=== PATIENT | female | born 1980 | race American Indian/Alaskan Native ===

== ENCOUNTER 2018-01-09 05:50 | Emergency (ER) | payer MEDICAID ==
[2018-01-09 06:13] VITALS: BP 126/83
[2018-01-09] MEDS ORDERED: TORADOL IM ONE (06:37)
--- NOTE | 2018-01-09 06:39 | Emergency Department Report ---
ED General Adult HPI - General Chief complaint: Back Pain/Injury Stated complaint: BACK/CHEST PAIN Time Seen by Provider: 01/09/18 06:14 Source: EMS Mode of arrival: Stretcher Limitations: No Limitations - History of Present Illness Initial comments: Patient presents to emergency department with complaint of upper back pain. Patient states the pain started 2 hours prior to arrival to the ED. The patient has 4 children at home thus the reason for taking ambulance so that her could stay home with the kids. The patient describes the pain as spasm- like eraser to 8 out of 10. Patient states approximately 2-1/2 weeks ago she picked up something heavy and that was initial injury to her back Severity scale (0 -10): 5 - Related Data Home Medications Medication Instructions Recorded Confirmed Last Taken Flunisolide [Aerospan] 2 puff INHALATION BID 07/17/14 08/16/14 08/01/14 12:00 2 RX: ALBUTEROL Inhaler [ProAir HFA 2 puff INHALATION Q4-6H 07/17/14 08/16/1412/22 18:00 Inhaler] 2 Pnv95/Ferrous Fumarate/FA 1 each PO QDAY 08/15/14 08/16/14 08/15/14 09:00 [ Vitamins] 1 Previous Rx's Medication Instructions Recorded Last Taken Type RX: predniSONE [Deltasone] 20 mg PO BID #10 tab 07/17/14 06/10/14 Rx HYDROcodone/APAP 5-325 [[place] 1 - 2 each PO Q6HR #30 tablet 08/16/14 Unknown Rx 5/325] RX: Ibuprofen [Motrin 600 MG tab] 600 mg PO Q6H PRN #30 tablet 08/16/14 Unknown Rx Acetaminophen/Codeine [Tylenol #3] 1 tab PO Q8H PRN #9 tab 08/04/15 Unknown Rx Ketorolac [Toradol] 10 mg PO Q6H PRN #20 tablet 01/09/18 Unknown Rx Allergies Allergy/AdvReac Type Severity Reaction Status Date / Time No Known Allergies Allergy Verified 08/15/14 15:14 ED Review of Systems ROS: Stated complaint: BACK/CHEST PAIN Other details as noted in HPI Comment: All other systems reviewed and negative Constitutional: denies: chills, fever Eyes: denies: eye pain, eye discharge, vision change ENT: denies: ear pain, throat pain Respiratory: denies: cough, shortness of breath, wheezing Cardiovascular: denies: chest pain, palpitations Endocrine: no symptoms reported Gastrointestinal: denies: abdominal pain, nausea, diarrhea Genitourinary: denies: urgency, dysuria, discharge Musculoskeletal: back pain. denies: joint swelling, arthralgia Skin: denies: rash, lesions Neurological: denies: headache, weakness, paresthesias Psychiatric: denies: anxiety, depression Hematological/Lymphatic: denies: easy bleeding, easy bruising ED Past Medical Hx - Past Medical History Hx Hypertension: No Hx Congestive Heart Failure: No Hx Diabetes: No Hx Deep Vein Thrombosis: No Hx Renal Disease: No Hx Sickle Cell Disease: No Hx Headaches / Migraines: Yes Hx Seizures: Yes Hx Asthma: Yes Hx COPD: No Hx HIV: No Additional medical history: ectopic 2008 - Surgical History Additional Surgical History: Ectopic - Social History Smoking Status: Never Smoker Substance Use Type: None - Medications Home Medications: Home Medications Medication Instructions Recorded Confirmed Last Taken Type Flunisolide [Aerospan] 2 puff INHALATION BID 07/17/14 08/16/14 08/01/14 12:00 History 2 RX: ALBUTEROL Inhaler [ProAir HFA 2 puff INHALATION Q4-6H 07/17/14 08/16/1412/22 18:00 History Inhaler] 2 RX: predniSONE [Deltasone] 20 mg PO BID #10 tab 07/17/14 08/16/14 06/10/14 Rx Pnv95/Ferrous Fumarate/FA 1 each PO QDAY 08/15/14 08/16/14 08/15/14 09:00 History [ Vitamins] 1 HYDROcodone/APAP 5-325 [[place] 1 - 2 each PO Q6HR #30 tablet 08/16/14 Unknown Rx 5/325] RX: Ibuprofen [Motrin 600 MG tab] 600 mg PO Q6H PRN #30 tablet 08/16/14 Unknown Rx Acetaminophen/Codeine [Tylenol #3] 1 tab PO Q8H PRN #9 tab 08/04/15 Unknown Rx Ketorolac [Toradol] 10 mg PO Q6H PRN #20 tablet 01/09/18 Unknown Rx ED Physical Exam - General Limitations: No Limitations General appearance: alert, in no apparent distress - Head Head exam: Present: atraumatic, normocephalic - Eye Eye exam: Present: normal appearance, PERRL, EOMI - ENT ENT exam: Present: mucous membranes moist - Neck Neck exam: Present: normal inspection - Respiratory Respiratory exam: Present: normal lung sounds bilaterally. Absent: respiratory distress, wheezes, rales, rhonchi - Cardiovascular Cardiovascular Exam: Present: regular rate, normal rhythm. Absent: systolic murmur, diastolic murmur, rubs, gallop - GI/Abdominal GI/Abdominal exam: Present: soft, normal bowel sounds - Extremities Exam Extremities exam: Present: normal inspection - Back Exam Back exam: Present: other (patient tender to palpation of the parathoracic region with obvious spasms) - Neurological Exam Neurological exam: Present: alert, oriented X3 - Psychiatric Psychiatric exam: Present: normal affect, normal mood - Skin Skin exam: Present: warm, dry, intact, normal color. Absent: rash ED Course Vital Signs 01/09/18 01/09/18 06:04 06:14 Temperature 98.3 F Pulse Rate 96 H Respiratory 18 18 Rate Blood Pressure 126/83 [Left] O2 Sat by Pulse 98 Oximetry ED Medical Decision Making - Medical Decision Making Patient has significant improvement with IM Toradol Discussed other medication options but the patient was hesitant due to her breast-feeding Critical care attestation.: If time is entered above; I have spent that time in minutes in the direct care of this critically ill patient, excluding procedure time. ED Disposition Clinical Impression: Back pain, Back muscle spasm Disposition: DC-01 TO HOME OR SELFCARE Is pt being admited?: No Does the pt Need Aspirin: No Condition: Stable Instructions: Muscle Spasm (ED), Back Pain (ED) Additional Instructions: Please return if symptoms worsen Prescriptions: Ketorolac [Toradol] 10 mg PO Q6H PRN #20 tablet PRN Reason: Pain Referrals: PRIMARY CARE,MD [Primary Care Provider] - 3-5 Days CANDI SHAH MD [Staff Physician] - 3-5 Days Time of Disposition: 07:48
== END 2018-01-09 09:20 | disposition home or self-care (01) ==
LOC: ED 05:50
DX: M54.89 Other dorsalgia (principal); G43.909 Migraine, unspecified, not intractable, without status migrainosus
CPT/HCPCS: 96372; 99283; J1885

== ENCOUNTER 2019-02-12 22:48 | Emergency (ER) | payer MEDICAID, OTHER ==
[2019-02-12 22:56] VITALS: BP 130/73
--- NOTE | 2019-02-13 01:28 | Emergency Department Report ---
ED Laceration HPI - HPI Chief Complaint: Wound/Laceration Stated Complaint: LACERATION TO LEFT MIDDLE FINGER Time Seen by Provider: 02/13/19 00:54 Occurred When: Yesterday (last night at 8 PM) Severity: mild Tetanus Status: Up to Date Laceration Symptoms: Yes Pain, No Foreign Body Sensation, No Numbness, No Weakness ED Review of Systems ROS: Stated complaint: LACERATION TO LEFT MIDDLE FINGER Other details as noted in HPI Constitutional: denies: chills, fever Eyes: denies: eye pain, eye discharge, vision change ENT: denies: ear pain, throat pain Respiratory: denies: cough, shortness of breath, wheezing Cardiovascular: denies: chest pain, palpitations Endocrine: no symptoms reported Gastrointestinal: denies: abdominal pain, nausea, diarrhea Genitourinary: denies: urgency, dysuria, discharge Musculoskeletal: denies: back pain, joint swelling, arthralgia Skin: denies: rash, lesions Neurological: denies: headache, weakness, paresthesias Psychiatric: denies: anxiety, depression Hematological/Lymphatic: denies: easy bleeding, easy bruising ED Past Medical Hx - Past Medical History Hx Hypertension: No Hx Congestive Heart Failure: No Hx Diabetes: No Hx Deep Vein Thrombosis: No Hx Renal Disease: No Hx Sickle Cell Disease: No Hx Headaches / Migraines: Yes Hx Seizures: Yes Hx Asthma: Yes Hx COPD: No Hx HIV: No Additional medical history: ectopic 2008. hyperthyroid - Surgical History Additional Surgical History: Ectopic - Social History Smoking Status: Never Smoker Substance Use Type: None - Medications Home Medications: Home Medications Medication Instructions Recorded Confirmed Last Taken Type ALBUTEROL Inhaler (OR & NICU) 2 puff INHALATION Q4-6H 07/17/14 08/16/14 08/13/14 18:00 History [ProAir HFA Inhaler] 2 Flunisolide [Aerospan] 2 puff INHALATION BID 07/17/14 08/16/14 08/01/14 12:00 History 2 predniSONE [Deltasone] 20 mg PO BID #10 tab 07/17/14 08/16/14 06/10/14 Rx Pnv95/Ferrous Fumarate/FA 1 each PO QDAY 08/15/14 08/16/14 08/15/14 09:00 History [ Vitamins] 1 HYDROcodone/APAP 5-325 [[place] 1 - 2 each PO Q6HR #30 tablet 08/16/14 Unknown Rx 5/325] Ibuprofen [Motrin 600 MG tab] 600 mg PO Q6H PRN #30 tablet 08/16/14 Unknown Rx Acetaminophen/Codeine [Tylenol #3] 1 tab PO Q8H PRN #9 tab 08/04/15 Unknown Rx Ketorolac [Toradol] 10 mg PO Q6H PRN #20 tablet 01/09/18 Unknown Rx Acetaminophen/Codeine [Tylenol 1 tab PO Q6H PRN #12 tab 02/13/19 Unknown Rx /Codeine # 3 tab] Sulfamethoxazole/Trimethoprim 1 each PO BID #14 tablet 02/13/19 Unknown Rx [Bactrim DS TAB] Laceration Physical Exam - Exam General: Vital signs noted. No distress. Alert and acting appropriately. Wound Length (cm): 1 Laceration Location: Upper Extremity (left middle finger) Laceration Exam: Yes Normal Distal CMS, No Foreign Body, No Exposed Tendon, Vessel, or Nerve, No Tendon Injury ED Course Vital Signs 02/12/19 22:55 Temperature 98.1 F Pulse Rate 79 Respiratory 18 Rate Blood Pressure 130/73 [Right] O2 Sat by Pulse 100 Oximetry - Reevaluation(s) Reevaluation #1: 02/13/19 01:24 Patient is speaking in full sentences with no signs of distress noted. - Laceration /Wound Repair Left Finger Wound Location: upper extremity (left middle finger) Wound Length (cm): 1 Wound's Depth, Shape: superficial Wound Explored: clean Irrigated w/ Saline (ccs): 40 Betadine Prep?: Yes Wound Repaired With: Dermabond Layer Closure?: No Sterile Dressing Applied?: Yes Progress: Patient was first soaked finger with betadine and water. Under sterile field, I used Betadine to clean the area. I then used 40 mL of normal saline to flush the area. I then used Dermabond to approximate the laceration. I then applied a sterile 4 x 4 with tape. Minimal bleeding noted but is under control. Patient tolerated procedure well with no signs of distress. ED Medical Decision Making - Medical Decision Making This is a 38-year-old female that presents with laceration. Patient is stable and was examined by me. Dermabond applied to the laceration and patient tolerated well. A sterile dressing has been applied. Patient was educated on proper wound care. Patient is discharged with Bactrim and Tylenol with codeine and was instructed not to operate any machinery while taking Tylenol with codeine due to drowsiness. Patient was instructed to refer to Follow-up with a primary care doctor in 3-5 days or if symptoms worsen and continue return to emergency room as soon as possible. At time of discharge, the patient does not seem toxic or ill in appearance. No acute signs of distress noted. Patient agrees to discharge treatment plan of care. No further questions noted by the patient. Critical care attestation.: If time is entered above; I have spent that time in minutes in the direct care of this critically ill patient, excluding procedure time. ED Disposition Clinical Impression: Laceration Disposition: DC-01 TO HOME OR SELFCARE Is pt being admited?: No Does the pt Need Aspirin: No Condition: Stable Instructions: Laceration (ED), Skin Adhesive Care (ED), Acetaminophen/Codeine (By mouth) Additional Instructions: Follow-up with a primary care doctor in 3-5 days or if symptoms worsen and continue return to emergency room as soon as possible. Prescriptions: Sulfamethoxazole/Trimethoprim [Bactrim DS TAB] 1 each PO BID #14 tablet Acetaminophen/Codeine [Tylenol /Codeine # 3 tab] 1 tab PO Q6H PRN #12 tab PRN Reason: Pain , Severe (7-10) Referrals: CEIRRA CARPIO MD [Primary Care Provider] - 3-5 Days PRIMARY CAREMD [Referring] - 3-5 Days MICK PATRICIO MD [Staff Physician] - 3-5 Days [facility] [Outside] - 3-5 Days [facility] [Outside] - 3-5 Days Forms: Work/School Release Form(ED)
== END 2019-02-13 01:47 | disposition home or self-care (01) ==
LOC: ED 22:48
DX: S61.213A Laceration without foreign body of left middle finger without damage to nail, initial encounter (principal); G43.909 Migraine, unspecified, not intractable, without status migrainosus; J45.909 Unspecified asthma, uncomplicated; E05.90 Thyrotoxicosis, unspecified without thyrotoxic crisis or storm; X58.XXXA Exposure to other specified factors, initial encounter; Y93.89 Activity, other specified; Y92.89 Other specified places as the place of occurrence of the external cause; Y99.8 Other external cause status
CPT/HCPCS: 99282

== ENCOUNTER 2020-05-10 10:51 | Emergency (ER) | payer SELFPAY ==
--- NOTE | 2020-05-10 12:08 | Event Note ---
ED Screening Note Date of service: 05/10/20 Time: 12:07 ED Screening Note: 39-year-old female who presents to ED with nausea vomiting worsening the past 2 days with mid abdominal pain radiating to mid back. Patient states she is unable to hold any food down. This initial assessment/diagnostic orders/clinical plan/treatment(s) is/are subject to change based on patients health status, clinical progression and re- assessment by fellow clinical providers in the ED. Further treatment and workup at subsequent clinical providers discretion. Patient/guardian urged not to elope from the ED as their condition may be serious if not clinically assessed and managed. Initial orders include: CBC, CMP, UA, UPT, Ultrasound abdomen
[2020-05-10 13:08] LABS: Bilirubin,Urine NEG (Negative); Blood,Urine NEG (Negative); Color,Urine Yellow (Yellow); Mucus,Urine 3+ /HPF
[2020-05-10 13:56] LABS: Alanine Aminotransferase 7 units/L (7-56); Albumin 4.6 g/dL (3.9-5); Blood Urea Nitrogen 11 mg/dL (7-17); Calcium 9.4 mg/dL (8.4-10.2); Hemolysis Index 7
[2020-05-10 13:58] LABS: BUN/Creatinine Ratio 28
[2020-05-10] MEDS ORDERED: METOCLOPRAMIDE 10 MG/2 ML INJ IV ONE (14:04)
[2020-05-10] MEDS ORDERED: ACETAMINOPHEN 500 MG TAB PO ONE (14:04)
[2020-05-10] MEDS ORDERED: SODIUM CHLORIDE 0.9% 1000 ML 1,000 ML IV ONE (14:04)
--- NOTE | 2020-05-10 14:25 | Ultrasound Report ---
ULTRASOUND ABDOMEN, COMPLETE INDICATION: abd pain. COMPARISON: No relevant prior imaging study available. FINDINGS: Pancreas: No significant abnormality. Abdominal Aorta: No significant abnormality. IVC: No significant abnormality. Liver: The liver measures 13.9 cm in length. No significant abnormality. Normal hepatopedal blood fl ow in the main portal vein. Gallbladder: Multiple small shadowing gallstones are identified in the gallbladder. No wall thickenin g or abnormal distention.. Bile ducts: No significant abnormality. Common bile duct measures 2.5 mm. Kidneys: Right: 12.1 cm in length. No significant abnormality. Left: 12.0 cm in length. No signif icant abnormality. Spleen: No significant abnormality. Free fluid: None. Additional Findings: None. IMPRESSION: Cholelithiasis. No evidence for acute cholecystitis. FIRSTTRIMESTER OBSTETRIC ULTRASOUND HISTORY: Abdominal pain COMPARISON: None. TECHNIQUE: Routine transabdominal and transvaginal OB ultrasound performed. FINDINGS: Uterus: Mildly enlarged measuring 14.6 x 8.9 x 9.1 cm. Gestational Sac: Well-defined oval shape and intrauterine in location. Yolk Sac: Normal in appearance. Fetus/Embryo: [place]-rump length of 2.5 cm, corresponding to an estimated gestational age of 9 weeks 1 day. Embryonic/ anatomy is too small for evaluation. Embryonic/ cardiac activity: 176bpm Placenta: Too small for evaluation. Amniotic fluid volume: Subjectively appropriate for gestational age. Ovaries: The right ovary is normal in size and appearance with normal blood flow, measuring 2.7 x 1. 4 x 2.3 cm. A 1.9 cm simple cyst is identified in the right ovary. The left ovary is normal in size a nd appearance with normal blood flow, measuring 2.9 x 1.7 x 3.9 cm. Additional findings: A small subchorionic hemorrhage is identified along the right lateral border of the gestational sac. IMPRESSION Early live intrauterine . 1.9 cm right ovarian cyst. Small subchorionic hemorrhage. Signer Name: Ministerio Camejo Jr, MD Signed: 05/10/2020 2:20 PM Workstation Name: [id number]
--- NOTE | 2020-05-10 14:41 | Emergency Department Report ---
ED Abdominal Pain HPI - General Chief Complaint: Nausea/Vomiting/Diarrhea Stated Complaint: cp/back pain/n/v Time Seen by Provider: 05/10/20 12:26 Source: patient Mode of arrival: Ambulatory Limitations: No Limitations - History of Present Illness Initial Comments: This is a 39-year-old female nontoxic, well nourished in appearance, no acute signs of distress presents to the ED with c/o of nausea and vomiting and abdominal pain several days. Patient describes vomiting as food content and yellow gastric acid. Patient describes abdominal pain as cramping and aching with level of 8/10 to RUQ with radiation to mid back. Patient denies chest pain , short of breath, fever, hemoptysis, blood in stool, chills, headache, stiff neck, numbness or tingling. Patient denies any diarrhea or constipation. Denies any blood in stool. Patient denies any recent travels. Patient denies any allegies. Patient is 9 weeks . Denies any vaginal bleeding or pelvic pain. MD Complaint: abdominal pain -: days(s) Location: RUQ Radiation: R flank Migration to: no migration Severity: mild Severity scale (0 -10): 8 Quality: cramping, aching Consistency: constant Improves With: nothing Worsens With: nothing Associated Symptoms: nausea, vomiting. denies: diarrhea, fever, chills, constipation, dysuria, hematemesis, hematochezia, melena, hematuria, anorexia, syncope - Related Data Home Medications Medication Instructions Recorded Confirmed Last Taken Albuterol Mdi (or & Nicu Only) 2 puff INHALATION Q4-6H 07/17/14 08/16/14 08/13/14 18:00 [ProAir HFA Inhaler] 2 Flunisolide [Aerospan] 2 puff INHALATION BID 07/17/14 08/16/14 08/01/14 12:00 2 Pnv95/Ferrous Fumarate/FA 1 each PO QDAY 08/15/14 08/16/14 08/15/14 09:00 [ Vitamins] 1 Previous Rx's Medication Instructions Recorded Last Taken Type predniSONE [Deltasone] 20 mg PO BID #10 tab 07/17/14 06/10/14 Rx HYDROcodone/APAP 5-325 [[place] 1 - 2 each PO Q6HR #30 tablet 08/16/14 Unknown Rx 5/325] Ibuprofen [Motrin 600 MG tab] 600 mg PO Q6H PRN #30 tablet 08/16/14 Unknown Rx Acetaminophen/Codeine [Tylenol #3] 1 tab PO Q8H PRN #9 tab 08/04/15 Unknown Rx Ketorolac [Toradol] 10 mg PO Q6H PRN #20 tablet 01/09/18 Unknown Rx Acetaminophen/Codeine [Tylenol 1 tab PO Q6H PRN #12 tab 02/13/19 Unknown Rx /Codeine # 3 tab] Sulfamethoxazole/Trimethoprim 1 each PO BID #14 tablet 02/13/19 Unknown Rx [Bactrim DS TAB] Metoclopramide [Reglan] 10 mg PO BID PRN #12 tab 05/10/20 Unknown Rx Nitrofurantoin [place]/M-Cryst 100 mg PO Q12HR #14 capsule 05/10/20 Unknown Rx [Macrobid CAP] Allergies Allergy/AdvReac Type Severity Reaction Status Date / Time No Known Allergies Allergy Verified 05/10/20 10:53 ED Review of Systems ROS: Stated complaint: cp/back pain/n/v Other details as noted in HPI Constitutional: denies: chills, fever Eyes: denies: eye pain, eye discharge, vision change ENT: denies: ear pain, throat pain Respiratory: denies: cough, shortness of breath, wheezing Cardiovascular: denies: chest pain, palpitations Endocrine: no symptoms reported Gastrointestinal: abdominal pain, nausea, vomiting. denies: diarrhea Genitourinary: denies: urgency, dysuria, discharge Musculoskeletal: back pain. denies: joint swelling, arthralgia Skin: denies: rash, lesions Neurological: denies: headache, weakness, paresthesias Psychiatric: denies: anxiety, depression Hematological/Lymphatic: denies: easy bleeding, easy bruising ED Past Medical Hx - Past Medical History Hx Hypertension: No Hx Congestive Heart Failure: No Hx Diabetes: No Hx Deep Vein Thrombosis: No Hx Renal Disease: No Hx Sickle Cell Disease: No Hx Headaches / Migraines: Yes Hx Seizures: Yes Hx Asthma: Yes Hx COPD: No Hx HIV: No Additional medical history: ectopic 2008. hyperthyroid - Surgical History Additional Surgical History: Ectopic - Social History Smoking Status: Never Smoker Substance Use Type: None - Medications Home Medications: Home Medications Medication Instructions Recorded Confirmed Last Taken Type Albuterol Mdi (or & Nicu Only) 2 puff INHALATION Q4-6H 07/17/14 08/16/14 08/13/14 18:00 History [ProAir HFA Inhaler] 2 Flunisolide [Aerospan] 2 puff INHALATION BID 07/17/14 08/16/14 08/01/14 12:00 History 2 predniSONE [Deltasone] 20 mg PO BID #10 tab 07/17/14 08/16/14 06/10/14 Rx Pnv95/Ferrous Fumarate/FA 1 each PO QDAY 08/15/14 08/16/14 08/15/14 09:00 History [ Vitamins] 1 HYDROcodone/APAP 5-325 [[place] 1 - 2 each PO Q6HR #30 tablet 08/16/14 Unknown Rx 5/325] Ibuprofen [Motrin 600 MG tab] 600 mg PO Q6H PRN #30 tablet 08/16/14 Unknown Rx Acetaminophen/Codeine [Tylenol #3] 1 tab PO Q8H PRN #9 tab 08/04/15 Unknown Rx Ketorolac [Toradol] 10 mg PO Q6H PRN #20 tablet 01/09/18 Unknown Rx Acetaminophen/Codeine [Tylenol 1 tab PO Q6H PRN #12 tab 02/13/19 Unknown Rx /Codeine # 3 tab] Sulfamethoxazole/Trimethoprim 1 each PO BID #14 tablet 02/13/19 Unknown Rx [Bactrim DS TAB] Metoclopramide [Reglan] 10 mg PO BID PRN #12 tab 05/10/20 Unknown Rx Nitrofurantoin [place]/M-Cryst 100 mg PO Q12HR #14 capsule 05/10/20 Unknown Rx [Macrobid CAP] ED Physical Exam - General Limitations: No Limitations General appearance: alert, in no apparent distress - Head Head exam: Present: atraumatic, normocephalic - Eye Eye exam: Present: normal appearance - Neck Neck exam: Present: normal inspection, full ROM. Absent: tenderness, meningismus, lymphadenopathy - Respiratory Respiratory exam: Present: normal lung sounds bilaterally. Absent: respiratory distress, wheezes, rales, rhonchi, stridor, chest wall tenderness, accessory muscle use, decreased breath sounds, prolonged expiratory - Cardiovascular Cardiovascular Exam: Present: regular rate, normal rhythm, normal heart sounds. Absent: irregular rhythm, systolic murmur, diastolic murmur, rubs, gallop - GI/Abdominal GI/Abdominal exam: Present: soft, tenderness (RUQ), normal bowel sounds. Absent: distended, guarding, rebound, rigid, diminished bowel sounds - Extremities Exam Extremities exam: Present: normal inspection, full ROM, normal capillary refill. Absent: tenderness - Back Exam Back exam: Present: normal inspection, full ROM. Absent: tenderness, CVA tenderness (R), CVA tenderness (L), muscle spasm, paraspinal tenderness, vert ebral tenderness, rash noted - Neurological Exam Neurological exam: Present: alert, oriented X3, normal gait - Psychiatric Psychiatric exam: Present: normal affect, normal mood - Skin Skin exam: Present: warm, dry, intact, normal color. Absent: rash ED Course Vital Signs 05/10/20 05/10/20 10:55 12:08 Temperature 98.0 F Pulse Rate 110 H 74 Respiratory 20 Rate Blood Pressure 133/86 O2 Sat by Pulse 100 Oximetry - Reevaluation(s) Reevaluation #1: 05/10/20 14:40 Patient is speaking in full sentences with no signs of distress noted. ED Medical Decision Making - Lab Data Result diagrams: 05/10/20 12:39 05/10/20 12:39 Lab Results 05/10/20 05/10/20 05/10/20 Range/Units 12:39 12:39 12:39 WBC 11.0 (4.5-11.0) K/mm3 RBC 4.93 (3.65-5.03) M/mm3 Hgb 12.5 (10.1-14.3) gm/dl Hct 37.8 (30.3-42.9) % MCV 77 L (79-97) fl MCH 25 L (28-32) pg MCHC 33 (30-34) % RDW 16.0 H (13.2-15.2) % Plt Count 268 (140-440) K/mm3 Lymph % (Auto) 17.2 (13.4-35.0) % [place] % (Auto) 6.2 (0.0-7.3) % Eos % (Auto) 0.3 (0.0-4.3) % Baso % (Auto) 0.1 (0.0-1.8) % Lymph # 1.9 (1.2-5.4) K/mm3 [place] # 0.7 (0.0-0.8) K/mm3 Eos # 0.0 (0.0-0.4) K/mm3 Baso # 0.0 (0.0-0.1) K/mm3 Seg Neutrophils % 76.2 H (40.0-70.0) % Seg Neutrophils # 8.4 H (1.8-7.7) K/mm3 Sodium 136 L (137-145) mmol/L Potassium 3.7 (3.6-5.0) mmol/L Chloride 99.0 (98-107) mmol/L Carbon Dioxide 21 L (22-30) mmol/L Anion Gap 20 mmol/L BUN 11 (7-17) mg/dL Creatinine 0.4 L (0.6-1.2) mg/dL Estimated GFR > 60 ml/min BUN/Creatinine Ratio 28 % Glucose 81 (65-100) mg/dL Calcium 9.4 (8.4-10.2) mg/dL Total Bilirubin 0.70 (0.1-1.2) mg/dL AST 13 (5-40) units/L ALT 7 (7-56) units/L Alkaline Phosphatase 48 (35-129) units/L Total Protein 7.6 (6.3-8.2) g/dL Albumin 4.6 (3.9-5) g/dL Albumin/Globulin Ratio 1.5 % Lipase 14 (13-60) units/L HCG, Quant (0-4) mIU/mL Urine Color (Yellow) Urine Turbidity (Clear) Urine pH (5.0-7.0) Ur Specific [place] (1.003-1.030) Urine Protein (Negative) mg/dL Urine Glucose (UA) (Negative) mg/dL Urine Ketones (Negative) mg/dL Urine Blood (Negative) Urine Nitrite (Negative) Urine Bilirubin (Negative) Urine Urobilinogen (<2.0) mg/dL Ur Leukocyte Esterase (Negative) Urine WBC (Auto) (0.0-6.0) /HPF Urine RBC (Auto) (0.0-6.0) /HPF U Epithel Cells (Auto) (0-13.0) /HPF Urine Mucus /HPF 05/10/20 05/10/20 Range/Units 12:39 12:45 WBC (4.5-11.0) K/mm3 RBC (3.65-5.03) M/mm3 Hgb (10.1-14.3) gm/dl Hct (30.3-42.9) % MCV (79-97) fl MCH (28-32) pg MCHC (30-34) % RDW (13.2-15.2) % Plt Count (140-440) K/mm3 Lymph % (Auto) (13.4-35.0) % [place] % (Auto) (0.0-7.3) % Eos % (Auto) (0.0-4.3) % Baso % (Auto) (0.0-1.8) % Lymph # (1.2-5.4) K/mm3 [place] # (0.0-0.8) K/mm3 Eos # (0.0-0.4) K/mm3 Baso # (0.0-0.1) K/mm3 Seg Neutrophils % (40.0-70.0) % Seg Neutrophils # (1.8-7.7) K/mm3 Sodium (137-145) mmol/L Potassium (3.6-5.0) mmol/L Chloride (98-107) mmol/L Carbon Dioxide (22-30) mmol/L Anion Gap mmol/L BUN (7-17) mg/dL Creatinine (0.6-1.2) mg/dL Estimated GFR ml/min BUN/Creatinine Ratio % Glucose (65-100) mg/dL Calcium (8.4-10.2) mg/dL Total Bilirubin (0.1-1.2) mg/dL AST (5-40) units/L ALT (7-56) units/L Alkaline Phosphatase (35-129) units/L Total Protein (6.3-8.2) g/dL Albumin (3.9-5) g/dL Albumin/Globulin Ratio % Lipase (13-60) units/L HCG, Quant 148540 H (0-4) mIU/mL Urine Color Yellow (Yellow) Urine Turbidity Slightly-cloudy (Clear) Urine pH 6.0 (5.0-7.0) Ur Specific [place] 1.027 (1.003-1.030) Urine Protein 30 mg/dl (Negative) mg/dL Urine Glucose (UA) Neg (Negative) mg/dL Urine Ketones 80 (Negative) mg/dL Urine Blood Neg (Negative) Urine Nitrite Neg (Negative) Urine Bilirubin Neg (Negative) Urine Urobilinogen 2.0 (<2.0) mg/dL Ur Leukocyte Esterase Mod (Negative) Urine WBC (Auto) 27.0 H (0.0-6.0) /HPF Urine RBC (Auto) 7.0 (0.0-6.0) /HPF U Epithel Cells (Auto) 14.0 H (0-13.0) /HPF Urine Mucus 3+ /HPF - Radiology Data Referring Physician: CASSIDY STARKEY Patient Name: IDANIA TREVIZO Date of : 1980 Sex: Female Report Date: 2020-05-10 Report Status: Finalized [facility] [address] [place] [address] Ultrasound Report Signed Patient: IDANIA TREVIZO MR#: [id number] : 1980 Acct:[id number] Age/Sex: 39 / F ADM Date: 05/10/20 Loc: ED Attending Dr: Ordering Physician: GARRET DENIS Date of Service: 05/10/20 Procedure(s): US abdomen complete Accession Number(s): [id number] cc: GARRET DENIS ULTRASOUND ABDOMEN, COMPLETE INDICATION: abd pain. COMPARISON: No relevant prior imaging study available. FINDINGS: Pancreas: No significant abnormality. Abdominal Aorta: No significant abnormality. IVC: No significant abnormality. Liver: The liver measures 13.9 cm in length. No significant abnormality. Normal hepatopedal blood flow in the main portal vein. Gallbladder: Multiple small shadowing gallstones are identified in the gallbladder. No wall thickening or abnormal distention.. Bile ducts: No significant abnormality. Common bile duct measures 2.5 mm. Kidneys: Right: 12.1 cm in length. No significant abnormality. Left: 12.0 cm in length. No significant abnormality. Spleen: No significant abnormality. Free fluid: None. Additional Findings: None. IMPRESSION: Cholelithiasis. No evidence for acute cholecystitis. FIRSTTRIMESTER OBSTETRIC ULTRASOUND HISTORY: Abdominal pain COMPARISON: None. TECHNIQUE: Routine transabdominal and transvaginal OB ultrasound performed. FINDINGS: Uterus: Mildly enlarged measuring 14.6 x 8.9 x 9.1 cm. Gestational Sac: Well-defined oval shape and intrauterine in location. Yolk Sac: Normal in appearance. Fetus/Embryo: Bagnell-rump length of 2.5 cm, corresponding to an estimated gestational age of 9 weeks 1 day. Embryonic/ anatomy is too small for evaluation. Embryonic/ cardiac activity: 176bpm Placenta: Too small for evaluation. Amniotic fluid volume: Subjectively appropriate for gestational age. Ovaries: The right ovary is normal in size and appearance with normal blood flow, measuring 2.7 x 1.4 x 2.3 cm. A 1.9 cm simple cyst is identified in the right ovary. The left ovary is normal in size and appearance with normal blood flow, measuring 2.9 x 1.7 x 3.9 cm. Additional findings: A small subchorionic hemorrhage is identified along the right lateral border of the gestational sac. IMPRESSION Early live intrauterine . 1.9 cm right ovarian cyst. Small subchorionic hemorrhage. Signer Name: Ministerio murrieta Jr, MD Signed: 05/10/2020 2:20 PM Workstation Name: [id number] Transcribed By: TTR Dictated By: MINISTERIO CAMEJO JR, MD Electronically Authenticated By: MINISTERIO CAMEJO JR, MD Signed Date/Time: 05/10/20 1420 DD/ 1415 TD/TT: Referring Physician: CASSIDY STARKEY Patient Name: IDANIA TREVIZO Date of : 1980 Sex: Female Report Date: 2020-05-10 Report Status: Finalized [address] [address] Ultrasound Report Signed Patient: IDANIA TREVIZO MR#: [id number] : 1980 Acct:[id number] Age/Sex: 39 / F ADM Date: 05/10/20 Loc: ED Attending Dr: Ordering Physician: SIDNEY AMEZQUITA NP Date of Service: 05/10/20 Procedure(s): US OB transvaginal Accession Number(s): [id number] cc: SIDNEY AMEZQUITA NP ULTRASOUND ABDOMEN, COMPLETE INDICATION: abd pain. COMPARISON: No relevant prior imaging study available. FINDINGS: Pancreas: No significant abnormality. Abdominal Aorta: No significant abnormality. IVC: No significant abnormality. Liver: The liver measures 13.9 cm in length. No significant abnormality. Normal hepatopedal blood flow in the main portal vein. Gallbladder: Multiple small shadowing gallstones are identified in the gallbladder. No wall thickening or abnormal distention.. Bile ducts: No significant abnormality. Common bile duct measures 2.5 mm. Kidneys: Right: 12.1 cm in length. No s ignificant abnormality. Left: 12.0 cm in length. No significant abnormality. Spleen: No significant abnormality. Free fluid: None. Additional Findings: None. IMPRESSION: Cholelithiasis. No evidence for acute cholecystitis. FIRSTTRIMESTER OBSTETRIC ULTRASOUND HISTORY: Abdominal pain COMPARISON: None. TECHNIQUE: Routine transabdominal and transvaginal OB ultrasound performed. FINDINGS: Uterus: Mildly enlarged measuring 14.6 x 8.9 x 9.1 cm. Gestational Sac: Well- defined oval shape and intrauterine in location. Yolk Sac: Normal in appearance. Fetus/Embryo: Bagnell-rump length of 2.5 cm, corresponding to an estimated gestational age of 9 weeks 1 day. Embryonic/ anatomy is too small for evaluation. Embryonic/ cardiac activity: 176bpm Placenta: Too small for evaluation. Amniotic fluid volume: Subjectively appropriate for gestational age. Ovaries: The right ovary is normal in size and appearance with normal blood flow, measuring 2.7 x 1.4 x 2.3 cm. A 1.9 cm simple cyst is identified in the right ovary. The left ovary is normal in size and appearance with normal blood flow, measuring 2.9 x 1.7 x 3.9 cm. Additional findings: A small subchorionic hemorrhage is identified along the right lateral border of the gestational sac. IMPRESSION Early live intrauterine . 1.9 cm right ovarian cyst. Small subchorionic hemorrhage. Signer Name: Ministerio Camejo Jr, MD Signed: 05/10/2020 2:20 PM Workstation Name: [id number] Transcribed By: TTR Dictated By: MINISTERIO CAMEJO JR, MD Electronically Authenticated By: MINISTERIO CAMEJO JR, MD Signed Date/Time: 05/10/20 1420 DD/ 1415 TD/TT: Referring Physician: CASSIDY STARKEY Patient Name: IDANIA TREVIZO Date of : 1980 Sex: Female Report Date: 2020-05-10 Report Status: Finalized [facility] [address] [place] [address] Ultrasound Report Signed Patient: IDANIA TREVIZO MR#: [id number] : 1980 Acct:[id number] Age/Sex: 39 / F ADM Date: 05/10/20 Loc: ED Attending Dr: Ordering Physician: SIDNEY AMEZQUITA NP Date of Service: 05/10/20 Procedure(s): US OB <= 14 weeks fetus Accession Number(s): [id number] cc: SIDNEY AMEZQUITA NP ULTRASOUND ABDOMEN, COMPLETE INDICATION: abd pain. COMPARISON: No relevant prior imaging study available. FINDINGS: Pancreas: No significant abnormality. Abdominal Aorta: No significant abnormality. IVC: No significant abnormality. Liver: The liver measures 13.9 cm in length. No significant abnormality. Normal hepatopedal blood flow in the main portal vein. Gallbladder: Multiple small shadowing gallstones are identified in the gallbladder. No wall thickening or abnormal distention.. Bile ducts: No significant abnormality. Common bile duct measures 2.5 mm. Kidneys: Right: 12.1 cm in length. No significant abnormality. Left: 12.0 cm in length. No significant abnormality. Spleen: No significant abnormality. Free fluid: None. Additional Findings: None. IMPRESSION: Cholelithiasis. No evidence for acute cholecystitis. FIRSTTRIMESTER OBSTETRIC ULTRASOUND HISTORY: Abdominal pain COMPARISON: None. TECHNIQUE: Routine transabdominal and transvaginal OB ultrasound performed. FINDINGS: Uterus: Mildly enlarged measuring 14.6 x 8.9 x 9.1 cm. Gestational Sac: Well- defined oval shape and intrauterine in location. Yolk Sac: Normal in appearance. Fetus/Embryo: Bagnell-rump length of 2.5 cm, corresponding to an estimated gestat ional age of 9 weeks 1 day. Embryonic/ anatomy is too small for evaluation. Embryonic/ cardiac activity: 176bpm Placenta: Too small for evaluation. Amniotic fluid volume: Subjectively appropriate for gestational age. Ovaries: The right ovary is normal in size and appearance with normal blood flow, measuring 2.7 x 1.4 x 2.3 cm. A 1.9 cm simple cyst is identified in the right ovary. The left ovary is normal in size and appearance with normal blood flow, measuring 2.9 x 1.7 x 3.9 cm. Additional findings: A small subchorionic hemorrhage is identified along the right lateral border of the gestational sac. IMPRESSION Early live intrauterine . 1.9 cm right ovarian cyst. Small subchorionic hemorrhage. Signer Name: Ministerio Camejo Jr, MD Signed: 05/10/2020 2:20 PM Workstation Name: [id number] Transcribed By: TTR Dictated By: MINISTERIO CAMEJO JR, MD Electronically Authenticated By: MINISTERIO CAMEJO JR, MD Signed Date/Time: 05/10/20 1420 DD/ 1415 TD/TT: Critical care attestation.: If time is entered above; I have spent that time in minutes in the direct care of this critically ill patient, excluding procedure time. ED Disposition Clinical Impression: Cholelithiasis Qualifiers: Cholelithiasis location: gallbladder Cholecystitis presence: without cholecystitis Biliary obstruction: without biliary obstruction Qualified Code(s): K80.20 - Calculus of gallbladder without cholecystitis without obstruction UTI (urinary tract infection) Qualifiers: Urinary tract infection type: acute cystitis Hematuria presence: without hematuria Qualified Code(s): N30.00 - Acute cystitis without hematuria Qualifiers: Weeks of gestation: 9 weeks Qualified Code(s): Z3A.09 - 9 weeks gestation of Nausea & vomiting Qualifiers: Vomiting type: unspecified Vomiting Intractability: non-intractable Qualified Code(s): R11.2 - Nausea with vomiting, unspecified Disposition: DC-01 TO HOME OR SELFCARE Is pt being admited?: No Does the pt Need Aspirin: No Condition: Stable Instructions: (ED), Cholelithiasis (ED) Additional Instructions: Follow-up with a primary care and [facility] doctor in 3-5 days or if symptoms worsen and continue return to emergency room as soon as possible. Prescriptions: Nitrofurantoin [place]/M-Cryst [Macrobid CAP] 100 mg PO Q12HR #14 capsule Metoclopramide [Reglan] 10 mg PO BID PRN #12 tab PRN Reason: Nausea Referrals: PRIMARY CARE, [Primary Care Provider] - 3-5 Days CARBUCCIA,CIERRA, MD [Staff Physician] - 3-5 Days [facility] [Provider Group] - 3-5 Days [facility] [Provider Group] - 3-5 Days [facility] [Provider Group] - 3-5 Days Forms: Work/School Release Form(ED)
[2020-05-10 14:47] LABS: Basophils % (Auto) 0.1 % (0.0-1.8); Eosinophils % (Auto) 0.3 % (0.0-4.3); Hematocrit 37.8 % (30.3-42.9); Hemoglobin 12.5 gm/dl (10.1-14.3); Lymphocytes # (Auto) 1.9 K/mm3 (1.2-5.4); Lymphocytes % (Auto) 17.2 % (13.4-35.0); Mean Corpuscular HGB Conc 33 % (30-34); Mean Corpuscular Volume 77 fl (79-97); Monocytes # (Auto) 0.7 K/mm3 (0.0-0.8); Monocytes % (Auto) 6.2 % (0.0-7.3); Platelet Count 268 K/mm3 (140-440); Red Blood Count 4.93 M/mm3 (3.65-5.03)
[2020-05-10 15:17] VITALS: BP 130/81
== END 2020-05-10 16:30 | disposition home or self-care (01) ==
LOC: ED 10:51
DX: O21.9 Vomiting of pregnancy, unspecified (principal); O23.41 Unspecified infection of urinary tract in pregnancy, first trimester; O99.611 Diseases of the digestive system complicating pregnancy, first trimester; O99.281 Endocrine, nutritional and metabolic diseases complicating pregnancy, first trimester; O99.351 Diseases of the nervous system complicating pregnancy, first trimester; O99.511 Diseases of the respiratory system complicating pregnancy, first trimester; K80.20 Calculus of gallbladder without cholecystitis without obstruction; E03.9 Hypothyroidism, unspecified; G40.909 Epilepsy, unspecified, not intractable, without status epilepticus; J45.909 Unspecified asthma, uncomplicated; Z86.69 Personal history of other diseases of the nervous system and sense organs; Z79.899 Other long term (current) drug therapy; Z98.890 Other specified postprocedural states; Z3A.09 9 weeks gestation of pregnancy
CPT/HCPCS: 36415; 76700; 76801; 76817; 80053; 81001; 83690; 84702; 85025; 87086; 96361; 96374; 99284; J2765; J7030

== ENCOUNTER 2020-07-29 18:17 | Emergency (ER) | payer OTHER, MEDICAID ==
[2020-07-29 18:25] VITALS: BP 115/69
[2020-07-29] MEDS ORDERED: ACETAMINOPHEN 325 MG TAB PO ONE (19:20)
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
== END 2020-07-29 21:00 | disposition home or self-care (01) ==
LOC: ED 18:17
DX: O9A.212 Injury, poisoning and certain other consequences of external causes complicating pregnancy, second trimester (principal); S80.12XA Contusion of left lower leg, initial encounter; G43.909 Migraine, unspecified, not intractable, without status migrainosus; G40.909 Epilepsy, unspecified, not intractable, without status epilepticus; J45.909 Unspecified asthma, uncomplicated; Z98.890 Other specified postprocedural states; Z79.899 Other long term (current) drug therapy; Z3A.21 21 weeks gestation of pregnancy; V49.49XA Driver injured in collision with other motor vehicles in traffic accident, initial encounter; Y93.89 Activity, other specified; Y92.89 Other specified places as the place of occurrence of the external cause; Y99.8 Other external cause status
CPT/HCPCS: 99283